=== PATIENT | male | born 2000 | race Caucasian/White ===

== ENCOUNTER 2018-03-19 13:46 | Emergency (ER) | payer MEDICAID ==
[~2018-03-19] VITALS: Ht 177.8 cm; Wt 83.9 kg
== END 2018-03-19 16:36 | disposition home or self-care (01) ==
LOC: ED 13:46
DX: S30.1XXA Contusion of abdominal wall, initial encounter (principal); F17.200 Nicotine dependence, unspecified, uncomplicated; Y04.8XXA Assault by other bodily force, initial encounter
CPT/HCPCS: 36415; 80053; 81001; 85025; 99284

== ENCOUNTER 2025-07-11 08:47 | Emergency (ER) | payer SELFPAY ==
[~2025-07-11] VITALS: Ht 177.8 cm; Wt 103.0 kg
--- OUTSIDE RECORDS SUMMARY | 2025-07-11 08:52 | XMS ---
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 [place] VISIT COUNT (12 MO.) Max Fall TOTAL 1 NOTE: Visits indicate total known visits. ED/UCC VISIT TRACKING (12 MO.) 07/11/2025 08:49 [facility] OR TYPE: Emergency COMPLAINT: - WORK NOTE INPATIENT VISIT TRACKING (12 MO.) No inpatient visits to display in this time frame [email or web address]
[2025-07-11 09:02] VITALS: BP 168/98
== END 2025-07-11 09:03 | disposition home or self-care (01) ==
LOC: ED 08:47
DX: J06.9 Acute upper respiratory infection, unspecified (principal); F17.200 Nicotine dependence, unspecified, uncomplicated
CPT/HCPCS: 99283